=== PATIENT | female | born 1970 ===

== ENCOUNTER 2017-02-23 23:23 | Observation (INO) | payer BC, OTHER ==
[2017-02-23 23:44] VITALS: RESP 16
[2017-02-24] MEDS ORDERED: Sodium Chloride 0.9% 1,000 ML IV SCH (01:15)
[2017-02-24] MEDS ORDERED: Sodium Chloride 0.9% 1,000 ML ONE (01:16)
[2017-02-24] MEDS ORDERED: Piperacillin/Tazobact 3.375 GM in Sodium Chloride 100 ML IVPB STA (01:19)
[2017-02-24 01:35] LABS: BASO # 0.1 K/uL (0.0-0.2); BASO % 0.8 % (0.0-2.0); EOS # 0.2 K/uL (0.0-0.7); EOS % 1.8 % (0.0-4.0); HEMATOCRIT 36.1 % (34.0-47.0); LYMPH # 2.6 K/uL (1.0-4.3); LYMPH % 30.5 % (20.0-40.0); MEAN CELL VOLUME 84.7 fL (81.0-99.0); MEAN CORPUSCULAR HEMOGLOBIN 28.4 pg (27.0-31.0); MEAN CORPUSCULAR HGB CONC 33.6 g/dL (33.0-37.0); MEAN PLATELET VOLUME 8.9 fL (7.2-11.7); MONO # 0.8 K/uL (0.0-0.8); MONO % 9.4 % (0.0-10.0); RED CELL DISTRIBUTION WIDTH 13.3 % (11.5-14.5); WHITE BLOOD COUNT 8.6 K/uL (4.8-10.8)
[2017-02-24] MEDS ORDERED: Piperacillin/Tazobact 3.375 gm 100 ML IVPB ONE (01:36)
[2017-02-24 01:43] LABS: CHLORIDE 103 mmol/L (98-107); SODIUM 139 mmol/L (132-148)
[2017-02-24 01:45] LABS: GFR AFRICAN-AMERICAN > 60
[2017-02-24 01:46] LABS: ALB/GLOB RATIO 1.1 (1.0-2.1); ALKALINE PHOSPHATASE 60 U/L (38-126); ALT/SGPT 32 U/L (9-52); AST/SGOT 19 U/L (14-36); BILIRUBIN,TOTAL 0.5 mg/dL (0.2-1.3); BLOOD UREA NITROGEN 8 mg/dL (7-17); CALCIUM 8.9 mg/dl (8.6-10.4); CARBON DIOXIDE 26 mmol/L (22-30); GLUCOSE,RANDOM 98 mg/dL (65-105); TOTAL PROTEIN 7.3 g/dL (6.3-8.3)
[2017-02-24] MEDS ORDERED: Dexamethasone 4 mg/1 ml IV STA (02:24)
[2017-02-24] MEDS ORDERED: Dexamethasone 4 mg/1 ml ONE (02:27)
--- NOTE | 2017-02-24 02:42 | C.PDOC ---
History Of Present Illness 46 y/o female c/o left ear pain since Sat, seen by PMD on Sat and prescribed augmentin and tylenol #3/ pt sts she has been taking both since sat with no decrease in pain . no associated fever or chills, headache or neck stiffness. pt went to [facility] [place] on Wednesday night. had temporal bone head ct with iv contrast., showed otitis media and externa. was given iv antibiotics and iv morphine and toradol, placed on ed obs and discharged in morning with addition of cortisporin otic suspension to her meds. pt returns to ED tonight in tears due to pain; pt unable to use drops since ear so swollen, they won't go in ear. Time Seen by Provider: 02/23/17 23:50 Chief Complaint (Nursing): ENT Problem History Per: Patient Onset/Duration Of Symptoms: Days (4) Current Symptoms Are (Timing): Worse Quality (Ear): Pain W/Touch, Redness, Swelling Symptoms Have Been: Continuous Severity: Severe Pain Scale Rating Of: 9 Anticoagulant/Antiplatlet Use?: No Recent Aspirin Use: No Past Medical History Reviewed: Historical Data, Nursing Documentation, Vital Signs Vital Signs: Last Vital Signs Temp 98.8 F 02/23/17 23:42 Pulse 77 02/23/17 23:42 Resp 16 02/23/17 23:42 BP 135/86 02/23/17 23:42 Pulse Ox 99 02/24/17 06:21 - Medical History PMH: No Chronic Diseases Surgical History: No Surg Hx Family History: States: Unknown Family Hx - Social History Hx Tobacco Use: No Hx Alcohol Use: No Hx Substance Use: No - Immunization History Hx Tetanus Toxoid Vaccination: No Hx Influenza Vaccination: No Hx Pneumococcal Vaccination: No Review Of Systems Constitutional: Negative for: Fever, Chills Eyes: Negative for: Pain, Vision Change ENT: Positive for: Ear Pain. Negative for: Ear Discharge, Nose Pain, Nose Discharge, Nose Congestion, Mouth Pain, Mouth Swelling, Throat Pain, Throat Swelling Cardiovascular: Negative for: Chest Pain, Palpitations Respiratory: Negative for: Cough, Shortness of Breath Gastrointestinal: Negative for: Nausea, Vomiting, Abdominal Pain Musculoskeletal: Negative for: Neck Pain Neurological: Negative for: Weakness, Numbness Physical Exam - Physical Exam Appears: Non-toxic, In Acute Distress (crying in pain) Skin: Normal Color, Warm, Dry Head: Atraumatic, Normacephalic Eye(s): bilateral: Normal Inspection Ear(s): Left: Other (entiroe outer left ear swollen, tender, canal swollen closed, able to only see a enrique y short way into canal. debris noted, no tm visualized. left pre-auricular adenoopathy) Oral Mucosa: Dry Lips: Normal Appearing Teeth: Normal Dentition Neck: Normal ROM, No Midline Cervical Tenderness Chest: Symmetrical, No Deformity, No Tenderness Cardiovascular: Rhythm Regular, No Murmur Respiratory: Normal Breath Sounds, No Rales, No Rhonchi, Stridor, No Wheezing Gastrointestinal/Abdominal: Bowel Sounds, Soft, No Tenderness Neurological/Psych: Oriented x3, Normal Speech, Normal Cranial Nerves, Normal Motor, Normal Sensation ED Course And Treatment - Laboratory Results Result Diagrams: 02/24/17 01:31 02/24/17 01:31 O2 Sat by Pulse Oximetry: 99 Pulse Ox Interpretation: Normal Medical Decision Making Medical Decision Making: initial thought was to admit pt for outpatient antibiotic failure; discussed with Dr Bonner; pt to be given decadron and observed for a few hours. pt now feeling better; will d/c home with ENT f/u today. pt feeling much better; pt rested for last few hours. pt sts pain decreased; right ear still swollen in canal and tender. pt to go home with medrol dose veronica , continue augmentin and f/u Dr Bonner today or tomorrow. Disposition Discussed With : Arvind Bonner Doctor Will See Patient In The: Office Counseled Patient/Family Regarding: Diagnosis, Need For Followup, Rx Given - Disposition Disposition: HOME/ ROUTINE Disposition Time: 06:20 Condition: STABLE - Clinical Impression Clinical Impression: Otitis externa of left ear, Intractable pain
[2017-02-24 06:47] VITALS: BP 127/71; PULSE 79; TEMP 97.9; O2SAT 98
== END 2017-02-24 06:19 | disposition home or self-care (01) ==
LOC: C.ER 23:23 → C.9OBSV 02-24 02:42
PROVIDERS: ADMIT Emergency Medicine; ATTEND Emergency Medicine
DX: H60.92 Unspecified otitis externa, left ear (principal)
CPT/HCPCS: 80053; 85025; 96365; 96375; 99283; G0378; J1100; J1885; J2270; J2543; J7040; J7050